=== PATIENT | male | born 1945 | race Caucasian/White ===

== ENCOUNTER → 2017-03-23 | Outpatient (CLI) | payer MEDICARE, BC ==
--- NOTE | ~2017-03-23 | ST ---
Unit #: [id number] #: [id number] Patient: PATRICIA SURESH [id number] [address] [address] [id number] O MR#: [id number] NAME: PATRICIA SURESH : 1945 SEX: M STUDY DATE/TIME: 03/23/2017 UNIT: [facility] ROOM: STUDY DESCRIPTION: Stress Test Attending Physician: Maggie Eng M.D. Referring Physician: Maggie Eng M.D. Primary Care Physician: Maggie Eng M.D. CARDIOLOGY REPORT EXAM Stress portion of nuclear study. FINDINGS Baseline EKG: Normal sinus rhythm. Left anterior hemiblock. Right bundle branch block. Resting heart rate 61 per minute. Blood pressure 140/84. This 71-year-old patient received 0.4 mg of Lexiscan intravenously. During the test, no ischemic changes noted. No arrhythmias noted. Blood pressure was stable. INTERPRETATION 1. Nondiagnostic EKG during Lexiscan. 2. No arrhythmias noted. 3. Stable blood pressure during the test. 4. Correlate with the Cardiolite study. Dictated by... Mattie Jones/ida TD: 03/23/2017 12:31 JOB #: [id number] CARDIOLOGY REPORT Page 1 of 1 X Li Suresh MD CARDIOLOGY REPORT
--- NOTE | ~2017-03-23 | TH ---
Unit #: [id number] #: [id number] Patient: PATRICIA SURESH [id number] [address] [address] [id number] O MR#: [id number] NAME: PATRICIA SURESH : 1945 SEX: M STUDY DATE/TIME: 03/23/2017 UNIT: [facility] ROOM: STUDY DESCRIPTION: Cardiolite study Attending Physician: Maggie Eng M.D. Referring Physician: Maggie Eng M.D. Primary Care Physician: Maggie Eng M.D. CARDIOLOGY REPORT EXAM Cardiolite study. TECHNIQUE This 71-year-old patient received 0.4 mg of Lexiscan intravenously followed by 34.2 mCi of technetium 99 Cardiolite and images were obtained according to the standard SPECT protocol. For rest images, 11.41 mCi of Cardiolite was injected. Images were reviewed in both phases. FINDINGS Overall study quality is excellent. LV cavity size is normal. In both images, there is no lung activity. RV is normal. Rotating raw data showed no significant artifact, soft tissue attenuation, or GI uptake. Review of the SPECT images showed a normal homogeneous radiotracer concentration throughout the myocardium in both the stress and rest images. Gated images showed a normal LV wall thickening and wall motion with an estimated LV ejection fraction 55%. IMPRESSION Myocardial perfusion imaging is normal. No evidence of ischemia or infarct. Normal LV dimensions. Normal systolic LV function with an estimated LV ejection fraction of 55%. Dictated by... Mattie Jones/ida TD: 03/23/2017 12:37 JOB #: [id number] CARDIOLOGY REPORT Page 1 of 1 X Li Suresh MD CARDIOLOGY REPORT
== END | disposition home or self-care (01) ==
LOC: CNUC 07:16
DX: R07.9 Chest pain, unspecified (principal)
CPT/HCPCS: 78452; 93017; A9500; J2785